=== PATIENT | female | born 1980 | race Caucasian/White ===

== ENCOUNTER 2024-06-20 22:38 | Emergency (ER) | payer BC, OTHER ==
[~2024-06-20] VITALS: Ht 167.6 cm; Wt 66.0 kg
[2024-06-20 22:43] VITALS: TEMP 36.7; O2SAT 99
[2024-06-20 22:50] VITALS: BP 105/72; PULSE 76; RESP 18; O2SAT 96
== END 2024-06-21 01:19 | disposition left against medical advice (07) ==
LOC: ER 22:44
DX: F10.129 Alcohol abuse with intoxication, unspecified (principal); R51.9 Headache, unspecified; F19.90 Other psychoactive substance use, unspecified, uncomplicated; Y90.9 Presence of alcohol in blood, level not specified
CPT/HCPCS: 99284